=== PATIENT | female | born 1945 | race Caucasian/White ===

== ENCOUNTER 2025-01-11 18:05 | Emergency (ER) | payer MEDICARE ==
[2025-01-11] MEDS ORDERED: Boostrix 0.5 ML (Tdap) VIAL (>/=7 yrs of age) ONE (18:48)
[2025-01-11] MEDS ORDERED: predniSONE 20 MG TAB ONE (21:22)
== END 2025-01-11 21:26 | disposition home or self-care (01) ==
LOC: MADERS 18:05
DX: S43.401A Unspecified sprain of right shoulder joint, initial encounter (principal); S63.501A Unspecified sprain of right wrist, initial encounter; S00.83XA Contusion of other part of head, initial encounter; Z23 Encounter for immunization; W01.198A Fall on same level from slipping, tripping and stumbling with subsequent striking against other object, initial encounter
CPT/HCPCS: 70450; 72125; 90471; 90715; J7512